=== PATIENT | female | born 1970 | race Caucasian/White ===

== ENCOUNTER 2020-08-05 19:59 | Emergency (ER) | payer OTHER, SELFPAY ==
[2020-08-05 19:59] VITALS: BP 180/100; PULSE 77; RESP 22; TEMP 36.5; O2SAT 98; BMI 36.6
--- NOTE | 2020-08-05 20:00 | PC.NURSE ---
FSBS 96
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
[2020-08-05 20:14] VITALS: BP 180/100; PULSE 78; RESP 18; TEMP 37.1; O2SAT 97
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
--- NOTE | 2020-08-05 20:16 | PC.NURSE ---
Trauma Alert cancelled.
--- NOTE | 2020-08-05 20:30 | PC.NURSE ---
Trauma Alert called [id number]
--- NOTE | 2020-08-05 20:33 | PC.NURSE ---
Addendum entered by DONNIE King 08/05/20 20:34: 195 MD at bedside Original Note: MD at bedside
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
[2020-08-05 23:13] VITALS: BP 100/75; PULSE 85; RESP 17; TEMP 36.8; O2SAT 99
== END 2020-08-05 23:31 | disposition home or self-care (01) ==
PROVIDERS: Emergency Provider Emergency Medicine; PCP Internal Medicine
DX: S01.81XA Laceration without foreign body of other part of head, initial encounter (principal); V86.55XA Driver of 3- or 4- wheeled all-terrain vehicle (ATV) injured in nontraffic accident, initial encounter; Y92.018 Other place in single-family (private) house as the place of occurrence of the external cause; S40.011A Contusion of right shoulder, initial encounter; S70.01XA Contusion of right hip, initial encounter
CPT/HCPCS: 12013; 70450; 71045; 72125; 72170; 72192; 99291